=== PATIENT | male | born 1970 | race Caucasian/White ===

== ENCOUNTER 2016-12-09 18:58 | Inpatient (IN) ==
[2016-12-09] MEDS ORDERED: OLANZapine INJ 10 MG VIAL IM PRN (19:08)
[2016-12-09] MEDS ORDERED: PROCHLORPERAZINE 10 MG/2 ML INJECTION IM PRN (19:08)
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
--- OUTSIDE RECORDS SUMMARY | 2016-12-09 19:13 | External Medical Summary ---
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
--- OUTSIDE RECORDS SUMMARY | 2016-12-09 19:13 | External Medical Summary ---
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
--- OUTSIDE RECORDS SUMMARY | 2016-12-09 19:14 | External Medical Summary ---
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
--- OUTSIDE RECORDS SUMMARY | 2016-12-09 19:14 | External Medical Summary ---
:1970 Author Organization [employer] Care Team Providers Name Role Phone Ade Butler Provider Role Unavailable Allergies No Known Allergies Problems Problem Type Condition Code Onset Dates Condition Status Problem Testicular hypogonadism E29.1 Active Problem HTN (hypertension) I10 Active Problem Anxiety F41.9 Active Medications No Known Medications Results No Known Results Summary Purpose [employer] Submission
--- OUTSIDE RECORDS SUMMARY | 2016-12-09 19:14 | External Medical Summary ---
:1970 Author Organization [employer] Care Team Providers Name Role Phone Ade Butler Provider Role Unavailable Allergies No Known Allergies Problems Problem Type Condition Code Onset Dates Condition Status Problem Testicular hypogonadism E29.1 Active Problem HTN (hypertension) I10 Active Problem Anxiety F41.9 Active Assessment Low back pain M54.5 Active Medications No Known Medications Results No Known Results Summary Purpose [employer] Submission
--- OUTSIDE RECORDS SUMMARY | 2016-12-09 19:14 | External Medical Summary ---
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
--- OUTSIDE RECORDS SUMMARY | 2016-12-09 19:14 | External Medical Summary ---
:1970 Author Organization [employer] Care Team Providers Name Role Phone Max Cagle Provider Role Unavailable Allergies, Adverse Reactions, Alerts Substance Reaction Event Type N.K.D.A. Info Not Available Non Drug Allergy Problems Problem Type Condition Code Onset Dates Condition Status Problem Paresthesia of skin R20.2 Active Problem Attention-deficit hyperactivity F90.9 Active disorder, unspecified type Problem Other intervertebral disc M51.36 Active degeneration, lumbar region Assessment Pain in unspecified joint M25.50 Active Assessment Cough R05 Active Problem Major depressive disorder, single F32.9 Active episode, unspecified Assessment Other intervertebral disc M51.36 Active degeneration, lumbar region Medications Medication Code Code Instructions Start End Status Dosage System Date Date Lyrica NDC 22037-52 150 MG Orally Dec 08, 1 capsules 14-41 twice a day 2015 [place] [address]-81 10-325 MG 1 tablet as 18-30 Orally every 6 needed hrs Cyclobenzaprine HCl NDC 69029-97 10 MG Orally Dec 07, Mar 07, 1 tablet 19-19 Two times a day 2015 2016 Oxycodone HCl NDC 39300-56 10 MG Orally 1 tablet as 56-01 every 6 hrs needed HydrOXYzine HCl NDC 58543-96 50 MG Orally August 10, 1 tablet 62-01 TID 2015 [place] [address]-90 20 MG Orally 1 tablet in 67-02 Twice a day the morning Procedures Procedure Coding System Code Date COMPREHEN METABOLIC PANEL CPT-4 76481 Jan 11, 2016 RHEUMATOID FACTOR, QUANT CPT-4 36274 Jan 11, 2016 COMPLETE CBC W/AUTO DIFF WBC CPT-4 01304 Jan 11, 2016 Office Visit, Est Pt., Level 3 CPT-4 44782 Jan 11, 2016 Vital Signs Date/Time: Jan 11, 2016 BMI 22.09 Index Weight 154. lbs Height 70 in Blood Pressure Diastolic 103 mm Hg Blood Pressure Systolic 162 mm Hg Temperature 98.4 F Cardiac Monitoring Heart Rate 102 /min Results No Known Results Summary Purpose [employer]Works Submission
--- OUTSIDE RECORDS SUMMARY | 2016-12-09 19:14 | External Medical Summary ---
:1970 Author Organization [employer] Care Team Providers Name Role Phone Max Cagle Provider Role Unavailable Allergies No Known Allergies Problems Problem Type Condition Code Onset Dates Condition Status Problem Major depressive disorder, single F32.9 Active episode, unspecified Problem Attention-deficit hyperactivity F90.9 Active disorder, unspecified type Medications Medication Code System Code Instructions Start End Date Status Dosage Date Adderall [facility] [address]4567-828 20 MG Orally 1 tablet in - Twice a day the morning BusPIRone HCl [facility] 45935-410 7.5 MG Orally August 31, 1 tablet 5-01 Twice a day 2015 Results No Known Results Summary Purpose [employer]ClinicalWorks Submission
--- OUTSIDE RECORDS SUMMARY | 2016-12-09 19:14 | External Medical Summary ---
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
--- OUTSIDE RECORDS SUMMARY | 2016-12-09 19:14 | External Medical Summary ---
:1970 Author Organization [employer]ClinicalWorks Care Team Providers Name Role Phone Ade Butler Provider Role Unavailable Allergies No Known Allergies Problems Problem Type Condition Code Onset Dates Condition Status Problem Testicular hypogonadism E29.1 Active Problem HTN (hypertension) I10 Active Problem Anxiety F41.9 Active Medications No Known Medications Results No Known Results Summary Purpose [employer] Submission
--- OUTSIDE RECORDS SUMMARY | 2016-12-09 19:14 | External Medical Summary ---
:1970 Author Organization [employer]ClinicalmAPPn Care Team Providers Name Role Phone Max Cagle Provider Role Unavailable Allergies No Known Allergies Problems Problem Type Condition Code Onset Dates Condition Status Problem Major depressive disorder, single F32.9 Active episode, unspecified Problem Attention-deficit hyperactivity F90.9 Active disorder, unspecified type Medications No Known Medications Results No Known Results Summary Purpose [employer] Submission
--- OUTSIDE RECORDS SUMMARY | 2016-12-09 19:14 | External Medical Summary ---
:[address] 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
--- OUTSIDE RECORDS SUMMARY | 2016-12-09 19:14 | External Medical Summary ---
:1970 Author Organization [employer] Care Team Providers Name Role Phone Ade Butler Provider Role Unavailable Allergies No Known Allergies Problems Problem Type Condition Code Onset Dates Condition Status Problem Testicular hypogonadism E29.1 Active Problem HTN (hypertension) I10 Active Problem Anxiety F41.9 Active Medications No Known Medications Results No Known Results Summary Purpose [employer] Submission
--- OUTSIDE RECORDS SUMMARY | 2016-12-09 19:14 | External Medical Summary ---
:1970 Author Organization [employer] Care Team Providers Name Role Phone Ade Butler Provider Role Unavailable Allergies No Known Allergies Problems Problem Type Condition Code Onset Dates Condition Status Problem Testicular hypogonadism E29.1 Active Problem HTN (hypertension) I10 Active Problem Anxiety F41.9 Active Medications No Known Medications Results No Known Results Summary Purpose [employer] Submission
--- OUTSIDE RECORDS SUMMARY | 2016-12-09 19:14 | External Medical Summary ---
[...] disc M51.36 Active degeneration, lumbar region Assessment Other intervertebral disc M51.36 Active degeneration, lumbar region Assessment Paresthesia of skin R20.2 Active Problem Major depressive disorder, single F32.9 Active episode, unspecified Assessment Attention-deficit hyperactivity F90.9 Active disorder, unspecified type Medications Medication Code Code Instructions Start End Status Dosage System Date Date HydrOXYzine HCl [facility] 47832-55 50 MG Orally TID August 10, 1 tablet 62-01 2015 Morphine Sulfate [facility] 89656-58 60 MG Orally not 35-01 defined Cyclobenzaprine HCl [facility] 33943-15 10 MG Orally Two Dec 07, Mar 07, 1 tablet 19-19 times a day 2015 2016 BusPIRone HCl [facility] 04930-60 7.5 MG Orally August 31, 1 tablet 45-01 Twice [place] day 2015 [place] [address]-79 10 MG Orally July 20, 1 tablet 21-31 Once a day 2016 at bedtime as needed Percocet [facility] 73316-26 10-325 MG Orally 1 tablet 18-30 every 6 hrs as needed Adderall [facility] 36841-94 20 MG Orally 1 tablet 67-02 Twice a day in the morning Procedures Procedure Coding System Code Date Office Visit, Est Pt., Level 4 CPT-4 04465 Dec 08, 2015 Vital Signs Date/Time: Dec 08, 2015 BMI 21.68 Index Weight 151.08 lbs Height 70 in Blood Pressure Diastolic 92 mm Hg Blood Pressure Systolic 147 mm Hg Temperature 98.3 F Cardiac Monitoring Heart Rate 75 /min Results No Known Results Summary Purpose eClinicalWorks Submission
--- OUTSIDE RECORDS SUMMARY | 2016-12-09 19:14 | External Medical Summary ---
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
--- OUTSIDE RECORDS SUMMARY | 2016-12-09 19:14 | External Medical Summary ---
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
--- OUTSIDE RECORDS SUMMARY | 2016-12-09 19:14 | External Medical Summary ---
:1970 Author Organization eClinicalWorks Care Team Providers Name Role Phone Ade Butler Provider Role Unavailable Allergies No Known Allergies Problems Problem Type Condition Code Onset Dates Condition Status Problem Testicular hypogonadism E29.1 Active Problem HTN (hypertension) I10 Active Problem Anxiety F41.9 Active Medications No Known Medications Results No Known Results Summary Purpose [employer] Submission
--- OUTSIDE RECORDS SUMMARY | 2016-12-09 19:14 | External Medical Summary ---
[...] Instructions Start Date End Date Status Dosage Adderall [facility] 22634-842 20 MG Orally 1 tablet in 7-02 Twice a day the morning Results No Known Results Summary Purpose eClinicalWorks Submission
--- OUTSIDE RECORDS SUMMARY | 2016-12-09 19:14 | External Medical Summary ---
:1970 Author Organization [facility] Address [address] [place] [address] Care Team Providers Name Role Phone Max Cagle Unavailable Unavailable PROBLEMS Type Condition ICD9-CM Code [id number] Onset Condition SNOMED Code Code Dates Status Problem Other M51.36 Active 56827026 intervertebral disc degeneration, lumbar region Problem Paresthesia of skin R20.2 Active 21297669 Problem Attention-deficit F90.9 Active 573431054 hyperactivity disorder, unspecified type Problem Major depressive F32.9 Active 69405832 disorder, single episode, unspecified ALLERGIES Unknown Allergies SOCIAL HISTORY No smoking Hx information available PLAN OF CARE VITAL SIGNS MEDICATIONS Medication Instructions Dosage Frequency Start End Duration Status Date Date BusPIRone HCl 10 MG Orally Twice a 1 tablet 12h 04 Mar, 30 days Active day 2016 Cyclobenzaprine HCl Orally Three 1 tablet 8h 30 Active 10 MG times a day RESULTS No Results PROCEDURES No Known procedures IMMUNIZATIONS No Known Immunizations
--- OUTSIDE RECORDS SUMMARY | 2016-12-09 19:14 | External Medical Summary ---
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
--- OUTSIDE RECORDS SUMMARY | 2016-12-09 19:15 | External Medical Summary ---
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 Unknown Non Drug Allergy Sep, Unknown SOCIAL HISTORY No smoking Hx information available PLAN OF CARE Activity Details Follow Up 1 Year, prn Reason:null VITAL SIGNS Height 70 in 2016-09-12 Weight 141 lb 0 oz lbs 2016-09-12 BMI 20.23 kg/m2 2016-09-12 Heart Rate 79 /min 2016-09-12 Blood pressure systolic 121 mm Hg 2016-09-12 Blood pressure diastolic 80 mm Hg 2016-09-12 MEDICATIONS Medication Instructions Dosage Frequency Start End Duration Status Date Date Adderall 20 MG Orally Twice a 1 tablet 12h 30 days Active day HydrOXYzine HCl Orally TID 1 tablet 8h 90 Active 100 MG Cymbalta 30 MG Orally Twice a 1 capsule 12h Mar, day(s) Active day 2016 Gabapentin 300 MG Orally two 1 capsule 12h Mar, day(s) Active times a day 2016 Cyclobenzaprine Orally Three 1 tablet 8h 90 Active HCl 10 MG times a day RESULTS No Results PROCEDURES Procedure Date Ordered Related Diagnosis Body Site EYE EXAM ESTABLISHED PAT September 12, 2016 REFRACTION September 12, 2016 IMMUNIZATIONS No Known Immunizations
--- OUTSIDE RECORDS SUMMARY | 2016-12-09 19:15 | External Medical Summary ---
:1970 Author Organization eClinicalWorks Care Team Providers Name Role Ade Way Provider Role Unavailable Allergies No Known Allergies Problems Problem Type Condition Code Onset Dates Condition Status Problem Testicular hypogonadism E29.1 Active Problem HTN (hypertension) I10 Active Problem Anxiety F41.9 Active Medications Medication Code System Code Instructions Start Date End Date Status Dosage atenolol [facility] 09688 25 orally once a day 1 tab(s) Results No Known Results Summary Purpose eClinicalWorks Submission
--- OUTSIDE RECORDS SUMMARY | 2016-12-09 19:15 | External Medical Summary ---
:1970 Author Organization eClinicalWorks Care Team Providers Name Role Phone Ade Butler Provider Role Unavailable Allergies No Known Allergies Problems Problem Type Condition Code Onset Dates Condition Status Problem Testicular hypogonadism E29.1 Active Problem HTN (hypertension) I10 Active Problem Anxiety F41.9 Active Medications No Known Medications Results No Known Results Summary Purpose [employer]WorldinicalCodasip Submission
--- OUTSIDE RECORDS SUMMARY | 2016-12-09 19:15 | External Medical Summary ---
:1970 Author Organization eClinicalWorks Care Team Providers Name Role Phone Ade Butler Provider Role Unavailable Allergies No Known Allergies Problems Problem Type Condition Code Onset Dates Condition Status Problem Testicular hypogonadism E29.1 Active Problem HTN (hypertension) I10 Active Problem Anxiety F41.9 Active Medications No Known Medications Results No Known Results Summary Purpose [employer]+ Submission
--- OUTSIDE RECORDS SUMMARY | 2016-12-09 19:15 | External Medical Summary ---
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
--- OUTSIDE RECORDS SUMMARY | 2016-12-09 19:15 | External Medical Summary ---
:1970 Author Organization eClinicalWorks Care Team Providers Name Role Phone Max Cagle Provider Role Unavailable Allergies No Known Allergies Problems Problem Type Condition Code Onset Dates Condition Status Problem Paresthesia of skin R20.2 Active Problem Attention-deficit hyperactivity F90.9 Active disorder, unspecified type Problem Other intervertebral disc M51.36 Active degeneration, lumbar region Problem Major depressive disorder, single F32.9 Active episode, unspecified Medications Medication Code System Code Instructions Start Date End Date Status Dosage Adderall [facility] 12467-174 20 MG Orally 1 tablet in 7-02 Twice a day the morning Results No Known Results Summary Purpose eClinicalWorks Submission
--- OUTSIDE RECORDS SUMMARY | 2016-12-09 19:15 | External Medical Summary ---
:1970 Author Organization eClinicalWorks Care Team Providers Name Role Phone Ade Butler Provider Role Unavailable Allergies No Known Allergies Problems Problem Type Condition Code Onset Dates Condition Status Problem Testicular hypogonadism E29.1 Active Problem HTN (hypertension) I10 Active Problem Anxiety F41.9 Active Medications No Known Medications Results No Known Results Summary Purpose [employer] Submission
--- OUTSIDE RECORDS SUMMARY | 2016-12-09 19:15 | External Medical Summary ---
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 98992354 cycle metabolism, unspecified Problem Presbyopia H52.4 Active 59577697 Problem Other M51.36 Active 59031306 intervertebral disc degeneration, lumbar region Problem Other amnesia R41.3 Active 23077807 Problem Myopia, 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
--- OUTSIDE RECORDS SUMMARY | 2016-12-09 19:15 | External Medical Summary ---
:1970 Author Organization eClinicalWorks Care Team Providers Name Role Phone Ade Butler Provider Role Unavailable Allergies No Known Allergies Problems Problem Type Condition Code Onset Dates Condition Status Problem Testicular hypogonadism E29.1 Active Problem HTN (hypertension) I10 Active Problem Anxiety F41.9 Active Assessment Low back pain M54.5 Active Medications Medication Code System Code Instructions Start Date End Date Status Dosage Avinza NDC 52187 60 mg/24 hours Jan 12, 2015 1 cap(s) orally once a day Lyrica NDC 46984 50 mg orally 2 Jan 08, 2015 1 cap(s) times a day prn Results No Known Results Summary Purpose eClinicalWorks Submission
--- OUTSIDE RECORDS SUMMARY | 2016-12-09 19:15 | External Medical Summary ---
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
--- OUTSIDE RECORDS SUMMARY | 2016-12-09 19:15 | External Medical Summary ---
[...] Start Date End Date Status Dosage Adderall [facility] 54664-605 20 MG Orally 1 tablet in 7-02 Twice a day the morning Results No Known Results Summary Purpose eClinicalWorks Submission
--- OUTSIDE RECORDS SUMMARY | 2016-12-09 19:15 | External Medical Summary ---
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 61197733 cycle metabolism, unspecified Problem Other amnesia R41.3 Active 51643329 Problem Other M51.36 Active 53007045 intervertebral disc degeneration, lumbar region Problem Paresthesia of skin R20.2 Active 24169709 Problem Myopia, 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
--- OUTSIDE RECORDS SUMMARY | 2016-12-09 19:15 | External Medical Summary ---
:1970 Author Organization [facility] Address [address] [place] [address] Care Team Providers Name Role Phone Max Cagle Unavailable Unavailable PROBLEMS Type Condition ICD9-CM Code [id number] Onset Condition SNOMED Code Code Dates Status Problem Other M51.36 Active 76427877 intervertebral disc degeneration, lumbar region Problem Paresthesia of skin R20.2 Active 11186572 Problem Attention-deficit F90.9 Active 174309144 hyperactivity disorder, unspecified type Problem Major depressive F32.9 Active 43465386 disorder, single episode, unspecified ALLERGIES Unknown Allergies SOCIAL HISTORY No smoking Hx information available PLAN OF CARE VITAL SIGNS MEDICATIONS Medication Instructions Dosage Frequency Start Date End Date Duration Status Lyrica 300 MG Orally Twice a 1 capsule 12h 04 Mar, 30 days Active day 2016 RESULTS No Results PROCEDURES No Known procedures IMMUNIZATIONS No Known Immunizations
--- OUTSIDE RECORDS SUMMARY | 2016-12-09 19:15 | External Medical Summary ---
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
--- OUTSIDE RECORDS SUMMARY | 2016-12-09 19:15 | External Medical Summary ---
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 39698028 cycle metabolism, unspecified Problem Presbyopia H52.4 Active 91721729 Problem Other M51.36 Active 43690228 intervertebral disc degeneration, lumbar region Problem Other amnesia R41.3 Active 16999243 Problem Myopia, 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
--- OUTSIDE RECORDS SUMMARY | 2016-12-09 19:15 | External Medical Summary | Referral Summary ---
:1970 Author Organization [facility] Address [address] [place] [address] Care Team Providers Name Role Phone Max Cagle Primary Care Physician Encounter VC Date(s): 04/12/16 - 04/12/16 [facility] [address], [place] [address] Discharge Diagnosis: Chronic back pain Discharge Disposition: Attending Physician: Carroll Baez DO Admitting Physician: Carroll Baez DO Vital Signs Most recent to oldest [Reference Range]: 1 Temperature Oral [35.8-37.3 degC] 37.3 degC (04/12/16 11:31 AM) Peripheral Pulse Rate [60-100 bpm] 83 bpm (04/12/16 11:31 AM) Heart Rate Monitored [60-100 bpm] 68 bpm (04/12/16 3:00 PM) Blood Pressure [90-140/60-90 mmHg] 145/98 mmHg *HI* (04/12/16 3:00 PM) Mean Arterial Pressure, Cuff 143 mmHg (04/12/16 1:30 PM) SpO2 98 % (04/12/16 3:00 PM) Problem List Condition Effective Dates Status Health Status Informant Benign essential hypertension Active (disorder)(Confirmed) Tobacco user(Confirmed) Active patient Allergies, Adverse Reactions, Alerts No Known Medication Allergies Substance Reaction Severity Status Bee Stings Active Medications ALPRAZolam 0.25 mg oral tablet 1 -2 tabs, Oral, Daily, as needed for panic attacks Start Date: 10/31/14 Status: OrderedbusPIRone 7.5 mg oral tablet 7.5 mg 1 tabs, Oral, TID Start Date: 10/31/14 Status: Orderedcyclobenzaprine Oral, 0 Refill(s) Start Date: 04/06/16 Status: OrderedDULoxetine Oral, 0 Refill(s) Start Date: 04/06/16 Status: Orderedgabapentin Oral, 0 Refill(s) Start Date: 04/06/16 Status: Orderedhydrocortisone 2.5% topical cream bronwyn, Topical, TID, to the affected area(s) Start Date: 10/31/14 Status: Orderedibuprofen 600 mg oral tablet 600 mg 1 tabs, Oral, q8hr, # 10 tabs, 0 Refill(s) Start Date: 11/23/14 Status: OrderedLaMICtal 25 mg oral tablet 25 mg 1 tabs, Oral, Bedtime (once a day) Start Date: 10/31/14 Status: Orderedlosartan 25 mg oral tablet 25 mg 1 tabs, Oral, Daily Start Date: 10/31/14 Status: OrderedLyrica Oral, 0 Refill(s) Start Date: 04/06/16 Status: OrderedoxyCODONE Oral, 0 Refill(s) Start Date: 11/23/14 Status: OrderedRemeron 30 mg oral tablet 15 mg 0.5 tabs, Oral, every day before bedtime Start Date: 10/31/14 Status: OrderedRitalin Oral, 0 Refill(s) Start Date: 11/23/14 Status: Orderedtriamterene-hydrochlorothiazide 37.5 mg-25 mg oral tablet 2 tabs, Oral, Daily Start Date: 10/31/14 Status: OrderedViagra 100 mg oral tablet 100 mg 1 tabs, Oral, as needed approximately 1/2 to 4 hours before sexual activity Start Date: 10/31/14 Status: Orderedzolpidem Bedtime (once a day), 0 Refill(s) Start Date: 04/06/16 Status: Ordered Results Hematology Most recent to oldest [Reference Range]: 1 WBC [4.8-10.8 10*3/uL] 5.0 10*3/uL (04/12/16 12:56 PM) RBC [4.60-6.20] 3.92 *LOW* (04/12/16 12:56 PM) Hgb [14.0-18.0 gm/dL] 12.1 gm/dL *LOW* (04/12/16 12:56 PM) Hct [42.0-52.0 %] 36.9 % *LOW* (04/12/16 12:56 PM) MCV [82.0-99.0 fL] 94.1 fL (04/12/16 12:56 PM) MCH [27.0-32.0 pg] 30.9 pg (04/12/16 12:56 PM) MCHC [32.0-36.0 gm/dL] 32.8 gm/dL (04/12/16 12:56 PM) RDW [11.5-14.5 %] 15.9 % *HI* (04/12/16 12:56 PM) Platelet [150-400 10*3/uL] 200 10*3/uL (04/12/16 12:56 PM) MPV [9.4-12.3 fL] 8.6 fL *LOW* (04/12/16 12:56 PM) Immature Granulocytes [0.0-1.0 %] 0.2 % (04/12/16 12:56 PM) Neutrophils [51-75 %] 63 % (04/12/16 12:56 PM) Lymphocytes [20-46 %] 25 % (04/12/16 12:56 PM) Monocytes [4-11 %] 10 % (04/12/16 12:56 PM) Eosinophils [0-4 %] 1 % (04/12/16 12:56 PM) Basophils [0-2 %] 1 % (04/12/16 12:56 PM) Neutro Absolute [1.90-7.00] 3.13 (04/12/16 12:56 PM) Lymph Absolute [0.80-3.30] 1.27 (04/12/16 12:56 PM) [place] Absolute [0.30-1.00] 0.48 (04/12/16 12:56 PM) Eos Absolute [0.00-0.50] 0.06 (04/12/16 12:56 PM) Baso Absolute [0.00-0.20] 0.06 (04/12/16 12:56 PM) Nucleated RBC Automated [0 /100 WBC] 0.0 /100 WBC (04/12/16 12:56 PM) Chemistry Most recent to oldest [Reference Range]: 1 Sodium Lvl [136-144 mEq/L] 136 mEq/L (04/12/16 12:56 PM) Potassium Lvl [3.6-5.1 mEq/L] 4.4 mEq/L (04/12/16 12:56 PM) Chloride [99-109 mEq/L] 104 mEq/L (04/12/16 12:56 PM) CO2 [22-32 mEq/L] 25 mEq/L (04/12/16 12:56 PM) AGAP [3-20] 7 (04/12/16 12:56 PM) BUN [4-20 mg/dL] 13 mg/dL (04/12/16 12:56 PM) Glucose Lvl [70-100 mg/dL] 83 mg/dL (04/12/16 12:56 PM) Creatinine Lvl [0.64-1.27 mg/dL] 1.14 mg/dL (04/12/16 12:56 PM) eGFR [>60] >60 1 (04/12/16 12:56 PM) Calcium Lvl [8.6-10.0 mg/dL] 8.8 mg/dL (04/12/16 12:56 PM) Albumin Lvl [3.5-4.8 gm/dL] 3.6 gm/dL (04/12/16 12:56 PM) Total Protein [6.1-7.9 gm/dL] 6.2 gm/dL (04/12/16 12:56 PM) Globulin [1.9-4.3 gm/dL] 2.6 gm/dL (04/12/16 12:56 PM) ALT [17-63 U/L] 30 U/L (04/12/16 12:56 PM) AST [15-41 U/L] 42 U/L *HI* (04/12/16 12:56 PM) Alk Phos [26-104 U/L] 100 U/L (04/12/16 12:56 PM) Bili Total [0.2-1.2 mg/dL] 0.6 mg/dL 2 (04/12/16 12:56 PM) 1Result Comment: Multiply eGFR results by 1.21 for race.2Result Comment: Naproxen, specifically the metabolite O-desmethylnaproxen, may cause spurious elevation in Total Bilirubin levels.Toxicology Most recent to oldest [Reference Range]: 1 U Amphetamine Scrn Negative (04/12/16 12:56 PM) U Cocaine Scrn Negative (04/12/16 12:56 PM) U Cannab Scrn Negative (04/12/16 12:56 PM) U Opiate Scrn Negative (04/12/16 12:56 PM) U PCP Scrn Negative (04/12/16 12:56 PM) U Benzodiazepine Scrn Negative (04/12/16 12:56 PM) U Barbiturate Scrn Negative (04/12/16 12:56 PM) Methadone Lvl Negative (04/12/16 12:56 PM) Tricyclics Negative 1 (04/12/16 12:56 PM) 1Result Comment: Cut-off concentrations: Amphetamines: 1000 ng/mL Cocaine: 300 ng/mL Cannabinoid: 50 ng/mL Opiate: 300 ng/mL Phencyclidine (PCP): 25 ng/mL Benzodiazepine: 200 ng/mL Barbiturate: 200 ng/mL Methadone: 300 ng/mL Tricyclic: 300 ng/mL The urine drug screen assays are qualitative screens. A more specific GC/MS method must be performed to obtain a confirmed analytical result. Unconfirmed screening results must not be used for non-medical purposes(e.g. employment or legal testing) Immunizations No data available for this section Procedures Procedure Date Related Diagnosis Body Site Surgery 03/06/95 Vasectomy Social History Social History Type Response Smoking Status Current every day smoker; Type: Cigarettes; Tobacco use per day : Less than Pack Assessment and Plan No data available for this section
--- OUTSIDE RECORDS SUMMARY | 2016-12-09 19:15 | External Medical Summary ---
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
--- OUTSIDE RECORDS SUMMARY | 2016-12-09 19:15 | External Medical Summary ---
:1970 Author Organization eClinicalWorks Care Team Providers Name Role Ade Way Provider Role Unavailable Allergies No Known Allergies Problems Problem Type Condition Code Onset Dates Condition Status Problem Testicular hypogonadism E29.1 Active Problem HTN (hypertension) I10 Active Problem Anxiety F41.9 Active Medications Medication Code System Code Instructions Start Date End Date Status Dosage Avinza [facility] [address] 60 mg/24 hours Jan 12, 2015 1 cap(s) orally once a day Results No Known Results Summary Purpose eClinicalWorks Submission
--- OUTSIDE RECORDS SUMMARY | 2016-12-09 19:15 | External Medical Summary ---
:1970 Author Organization eClinical[employer] Care Team Providers Name Role Ade Way Provider Role Unavailable Allergies No Known Allergies Problems Problem Type Condition ICD-9 Code Onset Dates Condition Status Problem Anxiety (unspecified) 300.00 Active Problem HTN [Hypertension] 401.9 Active Problem Testicular hypogonadism 257.2 Active Medications Medication Code System Code Instructions Start Date End Date Status Dosage [place] [facility] [address] 10-169 Feb 07, 2014 Active TAKE ONE TABLET BY MOUTH FOUR TIMES A DAY NEEDED Results No Known Results Summary Purpose eClinicalWorks Submission
--- OUTSIDE RECORDS SUMMARY | 2016-12-09 19:15 | External Medical Summary ---
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
--- OUTSIDE RECORDS SUMMARY | 2016-12-09 19:15 | External Medical Summary ---
:1970 Author Organization [facility] Address [address] [place] [address] Care Team Providers Name Role Phone Max Cagle Unavailable Unavailable PROBLEMS Type Condition ICD9-CM Code [id number] Onset Condition SNOMED Code Code Dates Status Problem Other M51.36 Active 98949560 intervertebral disc degeneration, lumbar region Problem Paresthesia of skin R20.2 Active 886594244 Problem Attention-deficit F90.9 Active 457173084 hyperactivity disorder, unspecified type Problem Major depressive F32.9 Active 52876573 disorder, single episode, unspecified ALLERGIES Unknown Allergies SOCIAL HISTORY No smoking Hx information available PLAN OF CARE VITAL SIGNS MEDICATIONS Medication Instructions Dosage Frequency Start End Date Duration Status Date Cymbalta 30 MG Orally Twice a 1 capsule 12h 18 Mar, 30 day(s) Active day 2016 Gabapentin 300 Orally two times 1 capsule 12h 18 Mar, 30 day(s) Active MG a day 2016 RESULTS No Results PROCEDURES No Known procedures IMMUNIZATIONS No Known Immunizations
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
--- OUTSIDE RECORDS SUMMARY | 2016-12-09 19:15 | External Medical Summary ---
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
--- OUTSIDE RECORDS SUMMARY | 2016-12-09 19:15 | External Medical Summary ---
[...] Start Date End Date Status Dosage Acetaminophen-Oxyc [facility] 689 325 mg-10 mg Oct 13 tab(s) odone orally 4 times 2014 Hydrochloride per day Results No Known Results Summary Purpose eClinicalWorks Submission
--- OUTSIDE RECORDS SUMMARY | 2016-12-09 19:15 | External Medical Summary ---
[...] disorder, single F32.9 Active episode, unspecified Medications No Known Medications Results No Known Results Summary Purpose eClinicalWorks Submission
--- OUTSIDE RECORDS SUMMARY | 2016-12-09 19:15 | External Medical Summary ---
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
--- OUTSIDE RECORDS SUMMARY | 2016-12-09 19:15 | External Medical Summary ---
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
--- OUTSIDE RECORDS SUMMARY | 2016-12-09 19:15 | External Medical Summary ---
:1970 Author Organization 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
--- OUTSIDE RECORDS SUMMARY | 2016-12-09 19:15 | External Medical Summary ---
:[address] [facility] Address [address] [place] [address] Care Team Providers Name Role Phone Max Cagle Unavailable Unavailable PROBLEMS Type Condition ICD9-CM Code [id number] Onset Condition SNOMED Code Code Dates Status Problem Other M51.36 Active 01912743 intervertebral disc degeneration, lumbar region Problem Paresthesia of skin R20.2 Active 475967311 Problem Attention-deficit F90.9 Active 690087043 hyperactivity disorder, unspecified type Problem Major depressive F32.9 Active 92735716 disorder, single episode, unspecified ALLERGIES Unknown Allergies SOCIAL HISTORY No smoking Hx information available PLAN OF CARE VITAL SIGNS MEDICATIONS Medication Instructions Dosage Frequency Start Date End Date Duration Status Adderall 20 MG Orally Twice a 1 tablet 12h 30 days Active day RESULTS No Results PROCEDURES No Known procedures IMMUNIZATIONS No Known Immunizations
--- OUTSIDE RECORDS SUMMARY | 2016-12-09 19:15 | External Medical Summary ---
[...] Date End Date Status Dosage Avinza [facility] 87552 30 mg/24 hours Dec 19, 2014 1 cap(s) orally once a day [place] [facility] [address] 325 mg-10 mg orally Dec 13, 2014 1 tab(s) 4 times per day Results No Known Results Summary Purpose eClinicalWorks Submission
--- OUTSIDE RECORDS SUMMARY | 2016-12-09 19:15 | External Medical Summary ---
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 Informed to contact his psychiatrist or go to ER) Medical History Insomnia Medical History Spinal issues (Dr. Bennett says poor surgical candidate 05/2016) Medical History Chronic Low Back pain, spinal canal stenosis at L4-5 with diffuse disk bulge, failed PT/injections Medical History ADD Medical History Hx Testicular Hypogonadism Surgical History Right shoulder surgery-cyst Hospitalization History For cyst removal from right shoulder
--- OUTSIDE RECORDS SUMMARY | 2016-12-09 19:15 | External Medical Summary ---
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
--- OUTSIDE RECORDS SUMMARY | 2016-12-09 19:15 | External Medical Summary ---
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
--- OUTSIDE RECORDS SUMMARY | 2016-12-09 19:15 | External Medical Summary ---
:1970 Author Organization [facility] Address [address] [place] [address] Care Team Providers Name Role Phone Max Cagle Unavailable Unavailable PROBLEMS Type Condition ICD9-CM Code [id number] Onset Condition SNOMED Code Code Dates Status Problem Other M51.36 Active 71558882 intervertebral disc degeneration, lumbar region Problem Paresthesia of skin R20.2 Active 89216052 Problem Attention-deficit F90.9 Active 067822145 hyperactivity disorder, unspecified type Problem Major depressive F32.9 Active 24372322 disorder, single episode, unspecified ALLERGIES Unknown Allergies SOCIAL HISTORY No smoking Hx information available PLAN OF CARE VITAL SIGNS MEDICATIONS Unknown Medications RESULTS No Results PROCEDURES No Known procedures IMMUNIZATIONS No Known Immunizations
--- OUTSIDE RECORDS SUMMARY | 2016-12-09 19:15 | External Medical Summary ---
:1970 Author Organization eClinicalWorks Care Team Providers Name Role Ade Way Provider Role Unavailable Allergies No Known Allergies Problems Problem Type Condition ICD-9 Code Onset Dates Condition Status Problem Anxiety (unspecified) 300.00 Active Problem HTN [Hypertension] 401.9 Active Problem Testicular hypogonadism 257.2 Active Medications Medication Code System Code Instructions Start Date End Date Status Dosage Acetaminophen-Oxyc [facility] 689 325 mg-10 mg September 11 tab(s) odone orally 4 times 2015 Hydrochloride per day Results No Known Results Summary Purpose eClinicalWorks Submission
--- OUTSIDE RECORDS SUMMARY | 2016-12-09 19:15 | External Medical Summary ---
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
--- OUTSIDE RECORDS SUMMARY | 2016-12-09 19:15 | External Medical Summary ---
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
--- OUTSIDE RECORDS SUMMARY | 2016-12-09 19:15 | External Medical Summary ---
:1970 Author Organization eClinicalWorks Care Team Providers Name Role Phone Ade Butler Provider Role Unavailable Allergies No Known Allergies Problems Problem Type Condition ICD-9 Code Onset Dates Condition Status Problem Anxiety (unspecified) 300.00 Active Problem HTN [Hypertension] 401.9 Active Problem Testicular hypogonadism 257.2 Active Assessment HTN (hypertension) 401.9 Active Medications No Known Medications Results No Known Results Summary Purpose eClinicalWorks Submission
--- OUTSIDE RECORDS SUMMARY | 2016-12-09 19:15 | External Medical Summary ---
[...] Instructions Start End Date Status Dosage Date HydrOXYzine HCl [facility] 00691-491 50 MG Orally TID August 10, 1 tablet 04-06 Results No Known Results Summary Purpose [employer] Submission
--- OUTSIDE RECORDS SUMMARY | 2016-12-09 19:15 | External Medical Summary ---
[...] Start Date End Date Status Dosage Adderall [facility] 42102-298 20 MG Orally 1 tablet in 7-02 Twice a day the morning Results No Known Results Summary Purpose eClinicalWorks Submission
--- OUTSIDE RECORDS SUMMARY | 2016-12-09 19:16 | External Medical Summary ---
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
--- OUTSIDE RECORDS SUMMARY | 2016-12-09 19:16 | External Medical Summary ---
:1970 Author Organization eClinicalWorks Care Team Providers Name Role Phone Ade Butler Provider Role Unavailable Allergies No Known Allergies Problems Problem Type Condition Code Onset Dates Condition Status Problem Anxiety (unspecified) 300.00 Active Problem HTN [Hypertension] 401.9 Active Problem Testicular hypogonadism 257.2 Active Medications No Known Medications Results No Known Results Summary Purpose [employer] Submission
--- OUTSIDE RECORDS SUMMARY | 2016-12-09 19:16 | External Medical Summary | Referral Summary ---
:[address] [facility] Address [address] [place] [address] Care Team Providers Name Role Phone Max Cagle Primary Care Physician Encounter VC Date(s): 03/10/16 - 03/10/[address] [facility] [address] [place], [place] [address] Discharge Diagnosis: Strain of right knee Discharge Diagnosis: Chronic low back pain Discharge Disposition: 01-Home or Self Care Attending Physician: Musa Roberts MD Admitting Physician: Daniel Tate MD Vital Signs Most recent to oldest [Reference Range]: 1 Temperature Oral [35.8-37.3 degC] 36.8 degC (03/10/16 4:28 PM) Peripheral Pulse Rate [60-100 bpm] 94 bpm (03/10/16 6:27 PM) Respiratory Rate [14-20 br/min] 20 br/min (03/10/16 6:27 PM) Blood Pressure [90-140/60-90 mmHg] 187/125 mmHg *HI* (03/10/16 6:27 PM) SpO2 98 % (03/10/16 6:27 PM) Problem List Condition Effective Dates Status [...] tabs, Oral, Daily Start Date: 10/31/14 Status: OrderedNaprosyn 375 mg oral tablet 375 mg 1 tabs, Oral, BID, as needed for pain, # 20 tabs, 0 Refill(s) Start Date: 03/10/16 Stop Date: 03/16/16 Status: OrderedoxyCODONE Oral, 0 Refill(s) Start Date: [...]
--- OUTSIDE RECORDS SUMMARY | 2016-12-09 19:16 | External Medical Summary ---
:1970 Author Organization [facility] Address [address], [place] [id number] Care Team Providers Name Role Phone Ade Butler Unavailable Unavailable PROBLEMS Type Condition ICD9-CM Code [id number] Code Onset Condition SNOMED Code Dates Status Problem Anxiety F41.9 Active 54439660 Problem Testicular E29.1 Active 57063076 hypogonadism Problem HTN I10 Active 89617545 (hypertension) ALLERGIES Unknown Allergies SOCIAL HISTORY No smoking Hx information available PLAN OF CARE VITAL SIGNS MEDICATIONS Unknown Medications RESULTS No Results PROCEDURES No Known procedures IMMUNIZATIONS No Known Immunizations
--- OUTSIDE RECORDS SUMMARY | 2016-12-09 19:16 | External Medical Summary | Referral Summary ---
:1970 Author Organization [facility] Address [address] [place] [address] Care Team Providers Name Role Phone Max Cagle Primary Care Physician Encounter VC Date(s): 04/06/16 - 04/06/16 [facility] [address], [place] [address] Discharge Disposition: [place] Attending Physician: Des Hammond DO Admitting Physician: Des Hammond DO Vital Signs Most recent to oldest [Reference Range]: 1 Temperature Oral [35.8-37.3 degC] 36.7 degC (04/06/16 11:03 AM) Peripheral Pulse Rate [60-100 bpm] 92 bpm (04/06/16 11:03 AM) Respiratory Rate [14-20 br/min] 18 br/min (04/06/16 11:03 AM) Blood Pressure [90-140/60-90 mmHg] 151/97 mmHg *HI* (04/06/16 11:03 AM) SpO2 100 % (04/06/16 11:03 AM) Problem List Condition Effective Dates Status Health [...] Refill(s) Start Date: 04/06/16 Status: Ordered Results No data available for [...]
--- OUTSIDE RECORDS SUMMARY | 2016-12-09 19:16 | External Medical Summary ---
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
--- OUTSIDE RECORDS SUMMARY | 2016-12-09 19:16 | External Medical Summary ---
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
--- OUTSIDE RECORDS SUMMARY | 2016-12-09 19:16 | External Medical Summary ---
[...] Instructions Start Date End Date Status Dosage Lyrica [facility] 317[address]-630 75 MG Orally once Dec 08, 2 capsules 4-41 a day 2015 Results No Known Results Summary Purpose [employer] Submission
--- OUTSIDE RECORDS SUMMARY | 2016-12-09 19:16 | External Medical Summary ---
:1970 Author Organization eClinicalWorks Care Team Providers Name Role Phone Ade Butler Provider Role Unavailable Allergies No Known Allergies Problems Problem Type Condition Code Onset Dates Condition Status Problem Testicular hypogonadism E29.1 Active Problem HTN (hypertension) I10 Active Problem Anxiety F41.9 Active Medications No Known Medications Results No Known Results Summary Purpose [employer] Submission
--- OUTSIDE RECORDS SUMMARY | 2016-12-09 19:16 | External Medical Summary ---
:1970 Author Organization eClinicalWorks Care Team Providers Name Role Phone Ade Butler Provider Role Unavailable Allergies No Known Allergies Problems Problem Type Condition Code Onset Dates Condition Status Problem Testicular hypogonadism E29.1 Active Problem HTN (hypertension) I10 Active Problem Anxiety F41.9 Active Medications No Known Medications Results No Known Results Summary Purpose [employer] Submission
--- OUTSIDE RECORDS SUMMARY | 2016-12-09 19:16 | External Medical Summary ---
:1970 Author Organization eClinicalWorks Care Team Providers Name Role Phone Ade Butler Provider Role Unavailable Allergies No Known Allergies Problems Problem Type Condition Code Onset Dates Condition Status Problem Anxiety (unspecified) 300.00 Active Problem HTN [Hypertension] 401.9 Active Problem Testicular hypogonadism 257.2 Active Medications Medication Code System Code Instructions Start Date End Date Status Dosage [place] [facility] [address] 10-325 po q May 09, TAKE ONE hours as needed 2014 TABLET BY MOUTH FOUR TIMES A DAY NEEDED Results No Known Results Summary Purpose eClinicalWorks Submission
--- OUTSIDE RECORDS SUMMARY | 2016-12-09 19:16 | External Medical Summary ---
:1970 Author Organization eClinicalWorks Care Team Providers Name Role Phone Dipak Fontaine Provider Role Unavailable Allergies, Adverse Reactions, Alerts Substance Reaction Event Type Bystolic Diarrhea Drug Allergy Tekturna diarrhea Drug Allergy citalopram diarrhea Drug Allergy Problems Problem Type Condition ICD-9 Code Onset Dates Condition Status Problem Anxiety (unspecified) 300.00 Active Problem HTN [Hypertension] 401.9 Active Problem Testicular hypogonadism 257.2 Active Assessment Gastroenteritis NOS 009.1 Active Medications Medication Code Code Instructions Start End Date Status Dosage System Date Adderall NDC 6025 20 mg orally 2 1 tab(s) times a day alprazolam NDC 63045 1 mg orally 3 Dec 18, 1 tab(s) times daily as 2012 needed for anxiety Acetaminophen-Oxyco NDC 689 325 mg-10 mg Mar 25, 1 tab(s) done Hydrochloride orally 4 times 2014 per day Metoclopramide NDC 1062 10 mg orally 4 Apr 11, 1 tab(s) Hydrochloride times a day 2014 (before meals and at bedtime) prn nausea omeprazole NDC 55621 40 orally once a Mar 10, 1 cap(s) day 2014 atenolol NDC 97962 25 mg orally 1 tab(s) once a day lamotrigine NDC 49032 100 orally 1 per 1 tab(s) [place] [address] 10-325 Mar 10, TAKE ONE 2014 TABLET BY MOUTH FOUR TIMES A DAY NEEDED Procedures Procedure Coding System Code Date Office Est Level 3 CPT-4 33889 Apr 11, 2014 Vital Signs Date/Time: Apr 11, 2014 BMI 26.03 Index Height 70 in Weight 181.4 lbs Cardiac Monitoring Heart Rate 77 /min Respiratory Rate 16 /min Temperature 98.4 F Waist 36.5 Inches Blood Pressure Diastolic 85 mm Hg Blood Pressure Systolic 148 mm Hg Results No Known Results Summary Purpose eClinicalWorks Submission
--- OUTSIDE RECORDS SUMMARY | 2016-12-09 19:16 | External Medical Summary ---
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 68041262 cycle metabolism, unspecified Problem Presbyopia H52.4 Active 81735737 Problem Other M51.36 Active 99095988 intervertebral disc degeneration, lumbar region Problem Other amnesia R41.3 Active 60443469 Problem Myopia, bilateral H52.13 Active 09651245 ALLERGIES Unknown Allergies SOCIAL HISTORY No smoking Hx information available PLAN OF CARE VITAL SIGNS MEDICATIONS Medication Instructions Dosage Frequency Start End Date Duration Status Date Adderall 20 MG Orally Twice a 1 tablet 12h 30 days Active day HydrOXYzine HCl Orally TID 1-2 tablet 8h 90 days Active 100 MG RESULTS No Results PROCEDURES No Known procedures IMMUNIZATIONS No Known Immunizations
--- OUTSIDE RECORDS SUMMARY | 2016-12-09 19:16 | External Medical Summary ---
:1970 Author Organization [facility] Address [address] [place] [address] Care Team Providers Name Role Phone Max Cagle Unavailable Unavailable PROBLEMS Type Condition ICD9-CM Code [id number] Onset Condition SNOMED Code Code Dates Status Problem Other M51.36 Active 18469793 intervertebral disc degeneration, lumbar region Problem Paresthesia of skin R20.2 Active 06727077 Problem Attention-deficit F90.9 Active 363565092 hyperactivity disorder, unspecified type Problem Major depressive F32.9 Active 58418256 disorder, single episode, unspecified ALLERGIES Unknown Allergies SOCIAL HISTORY No smoking Hx information available PLAN OF CARE VITAL SIGNS MEDICATIONS Medication Instructions Dosage Frequency Start End Duration Status Date Date Gabapentin 300 MG Orally two 1 capsule 12h 18 Mar, day(s) Active times a day 2016 Adderall 20 MG Orally Twice a 1 tablet 12h 30 days Active day Cyclobenzaprine Orally Three 1 tablet 8h 30 Active HCl 10 MG times a day RESULTS No Results PROCEDURES No Known procedures IMMUNIZATIONS No Known Immunizations
--- OUTSIDE RECORDS SUMMARY | 2016-12-09 19:16 | External Medical Summary ---
:1970 Author Organization [facility] Address [address] [place] [address] Care Team Providers Name Role Phone Max Cagle Unavailable Unavailable PROBLEMS Type Condition ICD9-CM Code [id number] Onset Condition SNOMED Code Code Dates Status Problem Other amnesia R41.3 Active 03237344 Problem Other M51.36 Active 33508748 intervertebral disc degeneration, lumbar region Problem Major depressive F32.9 Active 00767569 disorder, single episode, unspecified Problem Paresthesia of skin R20.2 Active 25044236 Problem Attention-deficit F90.9 Active 880913635 hyperactivity disorder, unspecified type ALLERGIES Substance Reaction Event Type Date Status N.K.D.A. Unknown Non Drug Allergy Aug, Unknown SOCIAL HISTORY No smoking Hx information available PLAN OF CARE Activity Details Follow Up 4 Weeks, prn Reason:null Pending Test RPR (DX) W/REFL TITER AND CONFIRMATORY TESTING Pending Test AMMONIA (P) Pending Test VITAMIN B12 Pending Test HIV 1/2 AG AND AB W/ REFLEXES VITAL SIGNS Height 70 in 2016-08-29 Weight 141.0 lbs 2016-08-29 BMI 20.23 kg/m2 2016-08-29 Heart Rate 89 /min 2016-08-29 Temperature 98.1 degrees Fahrenheit 2016-08-29 Blood pressure systolic 159 mm Hg 2016-08-29 Blood pressure diastolic 103 mm Hg 2016-08-29 MEDICATIONS Medication Instructions Dosage Frequency Start End Duration Status Date Date Gabapentin 300 MG Orally two 1 capsule 12h Mar, day(s) Active times a day 2016 Cyclobenzaprine Orally Three 1 tablet 8h 90 Active HCl 10 MG times a day Adderall 20 MG Orally Twice a 1 tablet 12h 30 days Active day Cymbalta 30 MG Orally Twice a 1 capsule 12h Mar, day(s) Active day 2016 HydrOXYzine HCl Orally TID 1 tablet 8h 90 Active 100 MG RESULTS No Results PROCEDURES Procedure Date Ordered Related Diagnosis Body Site PROTHROMBIN TIME August 29, 2016 Office Visit, Est Pt., Level 4 August 29, 2016 URINALYSIS, AUTO, W/O SCOPE August 29, 2016 ASSAY THYROID STIM HORMONE August 29, 2016 COMPLETE CBC W/AUTO DIFF WBC August 29, 2016 BLOOD SEROLOGY, QUALITATIVE August 29, 2016 COMPREHEN METABOLIC PANEL August 29, 2016 ASSAY OF AMMONIA August 29, 2016 VITAMIN B-12 August 29, 2016 ACUTE HEPATITIS PANEL August 29, 2016 HIV-1 AG W/HIV-1 & HIV-2 AB August 29, 2016 IMMUNIZATIONS No Known Immunizations
--- OUTSIDE RECORDS SUMMARY | 2016-12-09 19:16 | External Medical Summary ---
[...] disc M51.36 Active degeneration, lumbar region Medications No Known Medications Results No Known Results Summary Purpose eClinicalWorks Submission
--- OUTSIDE RECORDS SUMMARY | 2016-12-09 19:16 | External Medical Summary ---
:1970 Author Organization eClinicalWorks Care Team Providers Name Role Phone Ade Butler Provider Role Unavailable Allergies No Known Allergies Problems Problem Type Condition Code Onset Dates Condition Status Problem Testicular hypogonadism E29.1 Active Problem HTN (hypertension) I10 Active Problem Anxiety F41.9 Active Medications No Known Medications Results No Known Results Summary Purpose [employer] Submission
--- OUTSIDE RECORDS SUMMARY | 2016-12-09 19:17 | External Medical Summary ---
:1970 Author Organization [employer] Care Team Providers Name Role Phone Ade Butler Provider Role Unavailable Allergies No Known Allergies Problems Problem Type Condition Code Onset Dates Condition Status Problem Testicular hypogonadism E29.1 Active Problem HTN (hypertension) I10 Active Problem Anxiety F41.9 Active Assessment Low back pain M54.5 Active Medications No Known Medications Results No Known Results Summary Purpose [employer] Submission
--- OUTSIDE RECORDS SUMMARY | 2016-12-09 19:17 | External Medical Summary ---
:1970 Author Organization eClinicalWorks Care Team Providers Name Role Phone Ade Butler Provider Role Unavailable Allergies No Known Allergies Problems Problem Type Condition Code Onset Dates Condition Status Problem Testicular hypogonadism E29.1 Active Problem HTN (hypertension) I10 Active Problem Anxiety F41.9 Active Medications No Known Medications Results No Known Results Summary Purpose [employer] Submission
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
[2016-12-09] MEDS ORDERED: HydrOXYzine 50 MG TABLET PO ONE (21:06)
[2016-12-09] MEDS ORDERED: POTASSIUM CHLORIDE INJ 40 MEQ in NS 1,000 ML IV SCH (21:45)
[2016-12-09] MEDS: SALINE FLUSH 10ml SYRINGE IVF PRN (22:17)
[2016-12-10] MEDS ORDERED: HYDROMORPHONE 2 MG/ML INJECTION IVP ONE (02:10)
[2016-12-10] MEDS ORDERED: KETOROLAC 30 MG/ML INJECTION IVP ONE (02:10)
[2016-12-10] MEDS ORDERED: ORPHENADRINE 60 MG/2 ML INJECTION IV ONE (02:10)
[2016-12-10] MEDS ORDERED: INFLUENZA VAC. INJ. ADMIN CHARGE INJ ONE (05:55)
[2016-12-10] MEDS ORDERED: ONDANSETRON 4 MG/2 ML INJECTION IVP PRN ×2 (06:16→14:07)
[2016-12-10 06:27] VITALS: BMI 21.3
[2016-12-10] MEDS ORDERED: INFLUENZA VAC QIV 2017-18 (Fluarix*)(>=3yo) 0.5ml IM ONE (06:30)
[2016-12-10] MEDS ORDERED: HEPARIN 5,000unit/ml 1ml INJECTION IV SCH (09:30)
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
[2016-12-10] MEDS: KETOROLAC 30 MG/ML INJECTION IVP PRN ×3 (09:54→21:53)
[2016-12-10] MEDS: PANTOPRAZOLE 20 MG TABLET PO SCH (10:12)
[2016-12-10] MEDS: AMLODIPINE 5 MG TABLET PO SCH (10:12)
[2016-12-10] MEDS: HEPARIN SUB-Q 5,000 UNITS/0.5 ML INJECTION SQ SCH ×2 (10:17→17:07)
[2016-12-10] MEDS ORDERED: HYDRALAZINE 25 MG TABLET PO ONE (11:08)
[2016-12-10] MEDS ORDERED: HYDRALAZINE 10 MG TABLET PO ONE (11:53)
[2016-12-10] MEDS ORDERED: Oxycodone *IR* 5 MG TABLET PO ONE (11:54)
[2016-12-10] MEDS ORDERED: ONDANSETRON 4 MG/2 ML INJECTION IVP ONE (13:55)
[2016-12-10] MEDS: NICOTINE 14 MG PATCH TD SCH (14:39)
[2016-12-10] MEDS ORDERED: LISINOPRIL 10 MG TABLET PO ONE ×2 (14:55→18:21)
[2016-12-10] MEDS: SALINE FLUSH 10ml SYRINGE IVF PRN (15:39)
[2016-12-10] MEDS: HYDROCODONE/APAP 10 MG/325 MG TABLET PO PRN (21:48)
[2016-12-11] MEDS: HYDROCODONE/APAP 10 MG/325 MG TABLET PO PRN ×4 (01:33→19:33)
[2016-12-11] MEDS: KETOROLAC 30 MG/ML INJECTION IVP PRN ×3 (04:44→17:30)
[2016-12-11] MEDS: PANTOPRAZOLE 20 MG TABLET PO SCH (06:19)
[2016-12-11] MEDS: NICOTINE 14 MG PATCH TD SCH (08:57)
[2016-12-11] MEDS: AMLODIPINE 5 MG TABLET PO SCH (08:57)
[2016-12-11] MEDS: NICOTINE PATCH REMOVAL TD SCH (08:58)
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
[2016-12-11] MEDS: LISINOPRIL 10 MG TABLET PO SCH (10:12)
[2016-12-11] MEDS: Oxycodone/Apap 10/325 1 TAB PO PRN (22:09)
[2016-12-12] MEDS: KETOROLAC 30 MG/ML INJECTION IVP PRN (01:03)
[2016-12-12] MEDS: Oxycodone/Apap 10/325 1 TAB PO PRN ×5 (02:58→20:44)
[2016-12-12] MEDS: SALINE FLUSH 10ml SYRINGE IVF PRN ×2 (07:44→12:02)
[2016-12-12] MEDS: LISINOPRIL 10 MG TABLET PO SCH (08:33)
[2016-12-12] MEDS: PANTOPRAZOLE 20 MG TABLET PO SCH (08:33)
[2016-12-12] MEDS: AMLODIPINE 5 MG TABLET PO SCH (08:33)
[2016-12-12] MEDS: NICOTINE 14 MG PATCH TD SCH (08:33)
[2016-12-12] MEDS: NICOTINE PATCH REMOVAL TD SCH (08:34)
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
--- NOTE | 2016-12-12 22:43 | Progress Note ---
Subjective: The patient was seen this morning in his room. He complains of feeling hot and cold inside. He complains of fatigue. He is very guarded and does not seem to want to answer questions. He states he is scared to go to a psychiatric facility but is agreeable. He states he has been under a lot of stress because of his uncontrolled pain. He states he saw and neurosurgeon but never heard back on the recommendations. He also states that his psychiatrist a few weeks ago and that is been very distressing for him. Objective Vital signs: Temperature 98.8 F 12/12/16 15:45 Pulse Rate 70 12/12/16 20:00 Respiratory Rate 22 12/12/16 15:00 Blood Pressure 115/77 12/12/16 15:00 Pulse Oximetry 100 12/12/16 15:00 Height/Weight/BMI: Weight 69.7 kg Comments: GEN-alert, oriented, no acute distress HEENT-sclera anicteric, oropharynx is moist NECK-supple CV-regular rate and rhythm CHEST-clear to auscultation bilaterally ABD-soft, nontender with positive bowel sounds -no Iros EXT-no edema NEURO-no focal deficits SKIN-warm and dry and without rashes Results - Labs CBC & Chem 7: 12/12/16 12:19 12/12/16 12:19 Assessment and Plan Assessment and Plan: 12/12/2016 Impression Suicidal ideation-patient had some agitation this afternoon but otherwise has been calm her Aggressive behavior Chronic back pain Mild elevation of BUN/creatinine which have improved-elevation was likely secondary to initiation of lisinopril and use of Toradol History of alcohol abuse Tobacco abuse Mild anemia Hypokalemia-soft Hypertension-lisinopril and Norvasc started this hospitalization Plan Recheck basic metabolic profile in the morning Lisinopril was discontinued Toradol was discontinued Continue Norvasc IV fluids were discontinued Transfer to [facility], likely tomorrow. Discussed with nurse and case management. Continue suicide precautions Regarding agitation this afternoon, Dr. Rubio was consulted. Her help is appreciated. Hospital Course Summary Disclaimer: The visit summary below is not to be considered part of the above Progress Note. Hospital Course: 12/11/2016 1. Suicide ideation -Ideation of suicide by endoscopy technican. -Pt much better today, calm -Waiting available bed in [facility]-Pt has agreed to go 2. Aggressive behavior-resolved -Chronic anxiety -Ativan prn -Out of restraints. 3. Chronic pain -Was supposed to be seen by Dr. Godwin Monday but missed his appt. -Previously treated by Dr. Hernandez (?) -On toradol and oxycodone 4. Alcohol abuse 5. Tobacco abuse -Nicotine patch 6. Hypokalemia -replaced,now normal 7. HTN -On lisinopril 10mg daily and Norvasc 5 mg daily -Continue to adjust for control 8. Prophylaxis -Protonix and SQ heparin. 9. Disp -Plan to transfer to [facility] when bed available
[2016-12-13] MEDS: Oxycodone/Apap 10/325 1 TAB PO PRN ×3 (01:12→13:18)
[2016-12-13] MEDS: SALINE FLUSH 10ml SYRINGE IVF PRN (01:13)
[2016-12-13] MEDS: ClonazePAM 0.5 MG TABLET PO PRN ×2 (03:42→08:00)
[2016-12-13] MEDS: PANTOPRAZOLE 20 MG TABLET PO SCH (05:43)
[2016-12-13] MEDS: AMLODIPINE 5 MG TABLET PO SCH (08:01)
[2016-12-13] MEDS: NICOTINE PATCH REMOVAL TD SCH (08:01)
[2016-12-13] MEDS: NICOTINE 14 MG PATCH TD SCH (08:01)
[2016-12-13 08:12] VITALS: O2SAT 99
[2016-12-13] MEDS ORDERED: AMLODIPINE 5 MG TABLET PO ONE (09:13)
[2016-12-13] MEDS ORDERED: POLYETHYL GLYCOL 3350 17gm PACKET PO SCH (09:30)
[2016-12-13 12:06] VITALS: BP 150/93; RESP 28; TEMP 98.8
[2016-12-13 12:37] VITALS: PULSE 86
--- NOTE | 2016-12-13 13:50 | Discharge Instructions ---
Discharge Plan - Med Rec/Dispo Additional Instructions: follow up at [facility] when dismissed from [facility] Prescriptions: New Amlodipine [Norvasc] 10 mg PO DAILY #30 tablet Nicotine Patch [Nicoderm] 14 mg TD DAILY patch Nicotine Patch Removal 1 removal TD DAILY patch Discharge Instructions/Outpatient Orders: Provider Discharge Instructions Location: Determined By Patient - Disposition [facility] To Psych Hosp/Unit
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
== END 2016-12-13 14:00 | DRG 880 ==
LOC: CCU 18:58 → ED 18:58 → SUATTDRO 12-10 05:54 → CCU 12-10 06:15
PROVIDERS: ADMIT Internal Medicine; ATTEND Internal Medicine